=== PATIENT | female | born 1985 | race African-American/Black ===

== ENCOUNTER 2021-09-11 13:15 | Outpatient (CLI) | payer MEDICARE | END 2021-09-11 13:16 | disposition home or self-care (01) | LOC: CSHWCC 13:15 | PROVIDERS: ATTEND Family Medicine | DX: S11.90XD Unspecified open wound of unspecified part of neck, subsequent encounter (principal) | CPT/HCPCS: 97139; G0463; 99203 ==

== ENCOUNTER 2021-09-18 14:28 | Outpatient (CLI) | payer MEDICARE | END 2021-09-18 14:29 | disposition home or self-care (01) | LOC: CSHWCC 14:28 | PROVIDERS: ATTEND Nurse Practitioner Family | DX: S11.80XA Unspecified open wound of other specified part of neck, initial encounter (principal) | CPT/HCPCS: 99212; G0463 ==